=== PATIENT | male | born 1995 | race Caucasian/White ===

== ENCOUNTER 2017-08-26 19:14 | Emergency (ER) | payer OTHER ==
[~2017-08-26] VITALS: Ht 172.7 cm; Wt 117.9 kg
[2017-08-26] MEDS ORDERED: CYCLOBENZAPRINE10 MG PO (21:00)
[2017-08-26] MEDS ORDERED: NAPROSYN500 MG PO (21:00)
== END 2017-08-26 21:03 | disposition home or self-care (01) ==
LOC: ED 19:14
DX: M25.512 Pain in left shoulder (principal); G89.29 Other chronic pain

== ENCOUNTER 2023-05-28 19:24 | Emergency (ER) | payer OTHER, BC ==
[~2023-05-28] VITALS: Ht 175.2 cm; Wt 136.1 kg
[~2023-05-28 19:24] MED LIST: CYCLOBENZAPRINE10 MG PO; NAPROSYN500 MG PO
== END 2023-05-28 22:10 | disposition home or self-care (01) ==
LOC: ED 19:24
DX: S62.323A Displaced fracture of shaft of third metacarpal bone, left hand, initial encounter for closed fracture (principal); V89.2XXA Person injured in unspecified motor-vehicle accident, traffic, initial encounter; Y93.I9 Activity, other involving external motion; Y92.488 Other paved roadways as the place of occurrence of the external cause; Y99.8 Other external cause status

== ENCOUNTER → 2023-06-20 | Outpatient (CLI) | payer OTHER, BC | END | disposition home or self-care (01) | LOC: ORTHO 02:06 | PROVIDERS: ATTEND Orthopaedic Surgery | DX: S62.353D Nondisplaced fracture of shaft of third metacarpal bone, left hand, subsequent encounter for fracture with routine healing (principal); X58.XXXD Exposure to other specified factors, subsequent encounter ==

== ENCOUNTER → 2024-11-15 | Outpatient (CLI) | payer BC ==
[2024-11-15 07:42] LABS: BASO # 0.1 10*3/uL (0.0-0.1); BASO % 0.9 % (0.0-1.0); EOS # 0.3 10*3/uL (0.0-0.4); EOS % 4.6 % (1.0-4.0); MEAN CELL VOLUME 84.2 fl (80.0-94.0); MEAN CORPUSCULAR HGB 28.2 pg (27.0-31.0); MEAN PLATELET VOLUME 10.5 fl (9.6-12.3); MONO # 0.5 10*3/uL (0.1-1.0); MONO % 6.9 % (3.0-9.0); NEUT # 3.0 10*3/uL (2.3-7.9); NEUT % 46.5 % (47.0-73.0); NUCLEATED RED BLOOD CELL 0.0 % (0.0-0.0); NUCLEATED RED BLOOD CELL 0.0 10*3/uL (0.0-0.0); PLATELET COUNT AUTOMATED 153 10*3/uL (130-400); RED CELL DISTRI WIDTH 12.1 % (0-14.5)
[2024-11-15 08:21] LABS: BUN 10 mg/dl (9-23); SGPT/ALT 28 U/L (5-49)
== END | disposition home or self-care (01) ==
LOC: LAB 07:19
PROVIDERS: ATTEND Nurse Practitioner Primary Care
DX: N40.1 Benign prostatic hyperplasia with lower urinary tract symptoms (principal); E29.1 Testicular hypofunction

== ENCOUNTER 2025-01-03 11:26 | Emergency (ER) | payer BC ==
[~2025-01-03] VITALS: Ht 175.2 cm; Wt 129.3 kg
[2025-01-03] MEDS ORDERED: Ondansetron Hydrochloride 4 MG/2 ML VIAL IV ONE (11:45)
[2025-01-03] MEDS ORDERED: SODIUM CHLORIDE 0.9% 1,000 ML IV ONE (11:45)
[2025-01-03 11:56] LABS: BASO # 0.1 10*3/uL (0.0-0.1); BASO % 0.7 % (0.0-1.0); EOS # 0.3 10*3/uL (0.0-0.4); EOS % 3.2 % (1.0-4.0); MEAN CELL VOLUME 85.9 fl (80.0-94.0); MEAN CORPUSCULAR HGB 28.8 pg (27.0-31.0); MEAN PLATELET VOLUME 10.3 fl (9.6-12.3); MONO # 0.6 10*3/uL (0.1-1.0); MONO % 7.5 % (3.0-9.0); NEUT # 4.1 10*3/uL (2.3-7.9); NEUT % 48.4 % (47.0-73.0); NUCLEATED RED BLOOD CELL 0.0 % (0.0-0.0); NUCLEATED RED BLOOD CELL 0.0 10*3/uL (0.0-0.0); PLATELET COUNT AUTOMATED 160 10*3/uL (130-400); RED CELL DISTRI WIDTH 13.1 % (0-14.5)
[2025-01-03] MEDS ORDERED: LISDEXAMFETAMIN40 MG PO (11:57)
[2025-01-03] MEDS ORDERED: TESTOSTERO200 MG/1 M IM (11:57)
[2025-01-03 12:19] LABS: BUN 6 mg/dl (9-23)
[2025-01-03] MEDS ORDERED: FLOMAX0.4 MG PO (13:15)
[2025-01-03] MEDS ORDERED: PERCOCET 5-3251 EACH PO (13:15)
[2025-01-03] MEDS ORDERED: Ondansetron4 MG PO (13:15)
== END 2025-01-03 13:25 | disposition home or self-care (01) ==
LOC: ED 11:26
PROVIDERS: Nurse Practitioner Family
DX: N13.2 Hydronephrosis with renal and ureteral calculous obstruction (principal); Z79.899 Other long term (current) drug therapy

== ENCOUNTER → 2025-01-10 | Outpatient (CLI) | payer BC ==
[~2025-01-10] MED LIST changes: +FLOMAX0.4 MG PO; +LISDEXAMFETAMIN40 MG PO; +Ondansetron4 MG PO; +PERCOCET 5-3251 EACH PO; +TESTOSTERO200 MG/1 M IM
[2025-01-10 09:47] LABS: SGPT/ALT 25.0 U/L (5-49)
== END | disposition home or self-care (01) ==
LOC: LAB 07:34
PROVIDERS: ATTEND Nurse Practitioner Primary Care
DX: E29.1 Testicular hypofunction (principal); R97.20 Elevated prostate specific antigen [PSA]